=== PATIENT | female | born 1980 | race Caucasian/White ===

== ENCOUNTER → 2016-09-13 | Outpatient (CLI) | payer BC ==
--- NOTE | 2016-09-13 12:01 | CT ---
EXAMINATION TYPE: CT abdomen pelvis wo con DATE OF EXAM: 09/13/2016 COMPARISON: NONE INDICATION: Unspecified abdominal pain, diagnosed with renal stones previously DLP: 575.40 mGycm, Automated exposure control for dose reduction was used. CONTRAST: 0 mL of Omnipaque 300. Study performed without Oral Contrast TECHNIQUE: Axial images were obtained from above the diaphragm to the pubic rami in the axial plane a t 5 mm thick sections. Reconstructed images are reviewed on the computer in the coronal plane. FINDINGS: Limited CT sections are obtained the lung bases. The lung bases are clear. CT ABDOMEN: Liver: Normal Spleen: Normal Pancreas: Normal Adrenal glands: The adrenal glands are normal. Gallbladder: Normal Kidneys: No masses are evident. No hydronephrosis is present. No cysts are present. Multiple bilat eral renal cysts are present. This includes a 0.3 cm calcification at the inferior pole right kidney. 0.2 and 0.3 cm calcification is within the mid right kidney 0.4 cm calcification in the superior rig ht kidney 0.2 and 0.3 cm calcification in the superior pole of the right kidney. A 0.3 similar calcif ications in the upper pole left kidney. A 0.3 and 0.4 cm calcification is in the mid pole left kidney . There is a 0.2 cm calcification at the inferior pole left kidney. These calcifications are nonobstr ucting within the bilateral kidneys. No hydroureter is evident. Aorta: Normal Inferior vena cava: Normal. CT PELVIS: Loops of bowel within the abdomen and pelvis are normal. Studies without oral contrast limiting l oop of bowel evaluation. Appendix: Normal as visualized. Urinary bladder: Normal. Genitourinary structures: Uterus appears lobular and bulky. Fibroids are likely present. Additional e valuation with ultrasound is recommended. Adnexal regions otherwise appear unremarkable. Osseous structures: No suspicious lytic or sclerotic lesions. IMPRESSIONS: 1. Multiple nonobstructing bilateral renal stones. 2. Bulky uterus. Recommend ultrasound of the pelvis for additional evaluation.
== END | disposition home or self-care (01) ==
LOC: RADCTMAIN 07:29
PROVIDERS: ATTEND Family Medicine
DX: N20.0 Calculus of kidney (principal); N85.2 Hypertrophy of uterus
CPT/HCPCS: 74176

== ENCOUNTER → 2016-09-24 | Outpatient (CLI) | payer BC ==
--- NOTE | 2016-09-24 15:56 | US ---
EXAMINATION TYPE: US transvaginal DATE OF EXAM: 09/24/2016 COMPARISON: CT 09/13/2016 CLINICAL HISTORY: 36-year-old female D25.9 LEIOMYOMA OF UTERUS. Midline pelvic pain x couple months; uterus and right ovary were removed February 2015. Pelvic mass seen on recent CT TECHNIQUE: Transvaginal (TV) FINDINGS: Date of LMP: 2014 EXAM MEASUREMENTS: Uterus surgically absent. Right Ovary: surgically removed Left Ovary: 7.9 x 5.8 x 5.5 cm enlarged secondary to a complex mass containing multiple rounded comp onents. Areas of peripheral vascularity are demonstrated. Both arterial and venous flow is demonstrat ed. There may be a diverticulum from the bladder dome. Otherwise, no evident adnexal abnormality or cul-de-sac free fluid. IMPRESSION: 1. Status post hysterectomy and right-sided oophorectomy. 2. The left ovary is markedly enlarged measuring 7.9 cm with a large complex mass. Multiple hemorrhag ic cysts are possible. If no improvement in 6-8 weeks, further surgical management may be warranted to exclude neoplasm. 3. No sonographic evidence for ovarian torsion.
== END | disposition home or self-care (01) ==
LOC: RADUSWWP 14:52
PROVIDERS: ATTEND Family Medicine
DX: N83.8 Other noninflammatory disorders of ovary, fallopian tube and broad ligament (principal); Z90.710 Acquired absence of both cervix and uterus; Z90.721 Acquired absence of ovaries, unilateral
CPT/HCPCS: 76830

== ENCOUNTER 2017-02-07 06:36 | Day surgery (SDC) | payer BC ==
[2017-02-02 12:07] VITALS: BMI 27.2
[~2017-02-07 06:36] MED LIST: DEXAMETHASONE SOD PHOSPHATE 10 MG/ML 1 ML VIAL IV ONE; HYDROmorphone 0.5 MG/0.5 ML SYRINGE IVP PRN; LACTATED RINGERS 1,000 ML IV SCH; LIDOCAINE 1% 20 ML VIAL (10MG/ML) FOR IV START INTRADERMA PRN; ONDANSETRON 4 MG/2 ML VIAL IVP ONE; SCOPOLAMINE 1.5MG/72HR PATCH TRANSDERM ONE; ceFAZolin IN SWFI 2 GM/20 ML SYRINGE IVP ONE
[2017-02-07] MEDS ORDERED: LIDOCAINE 1% 20 ML VIAL (10MG/ML) FOR IV START INTRADERMA ONE (07:10)
--- NOTE | 2017-02-07 07:49 | P.HPOB ---
History of Present Illness H&P Date: 02/07/17 Chief Complaint: ovarian mass 36 year old G0 presents for laparoscopic removal of ovarian mass with possible oopherectomy using davinci. She has a variable size ovary, it has been up to 7.6cm and down to 6cm with a solid 3.8cm mass. She has history of endometriosis so I am suspecting endometrioma. Review of Systems All systems: negative Constitutional: Denies chills, Denies fever Eyes: denies blurred vision, denies pain Ears, nose, mouth and throat: Denies headache, Denies sore throat Cardiovascular: Denies chest pain, Denies shortness of breath Respiratory: Denies cough Gastrointestinal: Denies abdominal pain, Denies diarrhea, Denies nausea, Denies vomiting Genitourinary: Denies dysuria, Denies hematuria Musculoskeletal: Denies myalgias Integumentary: Denies pruritus, Denies rash Neurological: Denies numbness, Denies weakness Psychiatric: Denies anxiety, Denies depression Endocrine: Denies fatigue, Denies weight change Past Medical History Additional Past Medical History / Comment(s): PAST HX FIBROID UTERUS, RIGHT OVARIAN CYST & MENORRHAGIA (HYSTERECTOMY)., KIDNEY STONES., STATES OVARIAN MASS. History of Any Multi-Drug Resistant Organisms: None Reported Past Surgical History: Hysterectomy Additional Past Surgical History / Comment(s): HYSTERECTOMY WITH RIGHT SALPINGECTOMY & OOPHERECTOMY (02/2015). Past Anesthesia/Blood Transfusion Reactions: No Reported Reaction Additional Past Anesthesia/Blood Transfusion Reaction / Comment(s): . Past Psychological History: No Psychological Hx Reported Smoking Status: Never smoker Past Alcohol Use History: Occasional Additional Past Alcohol Use History / Comment(s): . Past Drug Use History: None Reported - Past Family History Mother Family Medical History: No Reported History Medications and Allergies Home Medications Medication Instructions Recorded Confirmed Type [id number] 391-635-24Gp 1 each PO Q6HR PRN 02/02/17 02/02/17 History [Excedrin] Ibuprofen [Motrin] 200 - 400 mg PO Q6HR PRN 02/02/17 02/02/17 History Naproxen [Naprosyn] 250 mg PO BID PRN 02/02/17 02/02/17 History traMADol HCL [Ultram] 50 mg PO Q4-6H PRN 02/02/17 02/07/17 History Allergies Allergy/AdvReac Type Severity Reaction Status Date / Time VAGINAL ULTRASOUND GEL AdvReac YEAST Uncoded 02/07/17 06:49 INFECTION AFTER 2 VAGINAL EXAMS Exam Osteopathic Statement: *. No significant issues noted on an osteopathic structural exam other than those noted in the History and Physical/Consult. - Vital Signs Vital signs: Vital Signs Temp Pulse Resp BP Pulse Ox 02/07/17 06:47 98.7 F 80 18 127/77 96 HEart: RRR Lungs: CTAB Abdomen: soft, nontender Extremeties: neg chari's Assessment and Plan (1) Ovarian mass, left Current Visit: Yes Status: Acute Code(s): N83.9 - NONINFLAMMATORY DISORD OF OVARY, FALLOP & BROAD LIGMT, UNSP SNOMED Code(s): 671285616 Plan: laparoscopic removal of ovarian mass using da carl, possible oopherectomy.
[2017-02-07] MEDS ORDERED: fentaNYL (PF) 50 MCG/ML 2 ML AMP ONE (07:55)
[2017-02-07] MEDS ORDERED: KETOROLAC 30 MG/ML 1 ML VIAL ONE (07:55)
[2017-02-07] MEDS ORDERED: ROCURONIUM BROMIDE 10 MG/ML 10 ML VIAL IV ONE (07:55)
[2017-02-07] MEDS ORDERED: NEOSTIGMINE 1 MG/ML 10 ML VIAL ONE (07:55)
[2017-02-07] MEDS ORDERED: MIDAZOLAM 2 MG/2 ML VIAL ONE (07:55)
[2017-02-07] MEDS ORDERED: PROPOFOL 10 MG/ML 20 ML VIAL IV ONE (07:55)
[2017-02-07] MEDS ORDERED: GLYCOPYRROLATE 0.2 MG/ML 2 ML VIAL ONE (07:55)
[2017-02-07] MEDS ORDERED: SUCCINYLCHOLINE CHLORIDE 100 MG/5 ML SYR IV ONE (07:55)
[2017-02-07] MEDS ORDERED: HYDROmorphone (PF) 1 MG/ML ONE (07:55)
[2017-02-07] MEDS ORDERED: LIDOCAINE 1% INJ 10MG/ML (20 ML MDV) ONE (07:55)
[2017-02-07] MEDS ORDERED: BUPIVACAINE (PF) 0.25% 30 ML VIAL SQ ONE (08:25)
[2017-02-07 10:04] VITALS: RESP 16; TEMP 97
--- NOTE | 2017-02-07 10:05 | P.OP ---
Date of Procedure: 02/07/17 Preoperative Diagnosis: 1. Ovarian mass Postoperative Diagnosis: 1. endometrioma 2. ovarian cyst 3. ovarian and bowel adhesions Procedure(s) Performed: laparoscopic removal of left ovary and tube, lysis of adhesions Anesthesia: TOMASZ Surgeon: Yael Tee Estimated Blood Loss (ml): 50 IV fluids (ml): 1,000 Urine output (ml): 200 Pathology: other (left ovary and tube) Condition: stable Disposition: PACU Operative Findings: multiple small cysts filled with endometriosis and other cysts filled with serous fluid, filmy bowel adhesions, bowel attached to left ovary. Description of Procedure: Patient taken the operating room where general anesthesia was obtained without difficulty. She is prepped and draped in normal sterile fashion dorsal lithotomy position, legs placed in the Reinaldo stirrups. Day catheter was placed. A 5 mm supraumbilical incision was made the scalpel and a 5 mm optical trocar was placed under direct visualization. 10 cm to the right of this and 2 cm down a 5 mm incision was made and 8 mm da Aj port was placed under direct visualization. Same measurements on the opposite side of the patient's abdomen , the 5 mm incision was made and 8 mm da Aj port was placed under direct visualization. In the left upper quadrant a 10 mm incision was made and a 10 mm optical trocar was placed under direct visualization. The 5 mm optical trocar was then replaced with the 8 mm da Aj camera port. The robot was docked on patient's right side. The camera was introduced and then the monopolar curved scissor and [place] bipolar placed under direct visualization. I broke scrub and went to the physician console. survey of the pelvis revealed bowel adhesions to the left ovary. There is also bowel adhesions to the vagina and inferior aspect of the abdominal wall. The ovary was grasped and immediately started bleeding.some of the bowel adhesions were able to be bluntly dissected, and the bowel was able to be pushed away. The posterior aspect of the ovary was firmly attached and the right side the ovary was firmly attached to the bowel. Opening up of the ovary and did not see any solid masses. There were however several small cysts that when opened endometriosis was observed and serous fluid was also observed. The decision at this time was made to remove as much ovary as possible because if the ovary is left the endometriosis is just going to come back in 4 more adhesions to the bowel and her problems are going to continue. The ovary was grasped and lifted. The mesosalpinx was cauterized with the bipolar and cut with the monopolar curved scissors. An area of the ovary was cauterized with the bipolar and cut with monopolar curved scissors. As much of the bowel as possible was bluntly dissected off the right part of the ovary, and rest of the ovary was removed. The ovary was placed into an Endo Catch bag and removed through the 10 port. There was still some oozing from the crater left. There was no active bleeding seen and though. The pelvis copiously irrigated. Rectal exam was performed. There was no blood on my glove and no defects visualized. Gelfoam was placed in the area of the crater that had some oozing. All instruments removed from the abdomen and the trochars were also removed. The incisions were closed with 4-0 Vicryl in a subcuticular fashion. Patient tolerated procedure well. Sponge and instrument counts correct 2. She was taken to recovery in stable condition.
[2017-02-07] MEDS ORDERED: HYDROcodone/APAP 7.5-325MG 1 EACH TAB PO ONE (11:24)
[2017-02-07 12:15] VITALS: BP 118/59; PULSE 72
== END 2017-02-07 12:30 | disposition home or self-care (01) ==
LOC: OR 06:36
PROVIDERS: ATTEND Obstetrics & Gynecology
DX: N80.1 Endometriosis of ovary (principal); N80.2 Endometriosis of fallopian tube; N83.02 Follicular cyst of left ovary; N73.6 Female pelvic peritoneal adhesions (postinfective); K66.0 Peritoneal adhesions (postprocedural) (postinfection)
CPT/HCPCS: 86900; 86901; 86850; 88307; 58661; J2250; J1100; J2710; J2405; J2001; J3010; J1885; J1170; J0330; J2704

== ENCOUNTER → 2020-12-29 | Outpatient (CLI) | payer BC ==
--- NOTE | 2020-12-31 08:02 | MM ---
Reason for exam: screening (asymptomatic). Baseline mammogram. Physical Findings: Nurse did not find any significant physical abnormalities on exam. MG Screening Mammo w CAD Bilateral CC and MLO view(s) were taken. The breast tissue is heterogeneously dense. This may lower the sensitivity of mammography. There is no discrete abnormality. ASSESSMENT: Negative, BI-RAD 1 RECOMMENDATION: Routine screening mammogram of both breasts in 1 year. Patient should continue monthly self breast exams. A negative report should not preclude additional follow up of suspicious palpable abnormalities.
== END | disposition home or self-care (01) ==
LOC: RADMAMWWP 14:32
PROVIDERS: ATTEND Family Medicine
DX: Z12.31 Encounter for screening mammogram for malignant neoplasm of breast (principal)
CPT/HCPCS: 77067

== ENCOUNTER → 2023-11-29 | Outpatient (CLI) | payer BC ==
--- NOTE | 2023-11-30 12:23 | MM ---
Reason for Exam: Screening (asymptomatic). Last mammogram was performed 2 year(s) and 11 month(s) ago. Patient History: Menarche at age 12. Hysterectomy at age 34. Risk Values: Stephanie 5 year model risk: 0.6%. NCI Lifetime model risk: 7.1%. Prior Study Comparison: 12/29/2020 Bilateral Screening Mammogram, [facility]. Tissue Density: The breasts are heterogeneously dense, which may obscure small masses. Findings: Analyzed By CAD. Right breast: There is no suspicious group of microcalcifications or new suspicious mass. Left breast: There is no suspicious group of microcalcifications or new suspicious mass. Overall Assessment: Negative, BI-RAD 1 Management: Screening Mammogram of both breasts in [address] [facility] will attempt to contact patient to return for supplemental views and ultrasound if indicated. Patient should continue monthly self-breast exams. A clinical breast exam by your physician is recommended on an annual basis. This exam should not preclude additional follow-up of suspicious palpable abnormalities. Note on Stephanie scores and lifetime risk: 1. A Stephanie score greater than 3% is considered moderate risk. If this is the case, consider specialist referral to assess eligibility for a risk reducing agent. 2. If overall lifetime risk for the development of breast cancer is 20% or higher, the patient may qualify for future screening with alternating mammogram and breast MRI. [facility], , 11/30/2023 12:20 PM. Electronically signed and approved by: Truman Peters DO
== END | disposition home or self-care (01) ==
LOC: RADMAMWWP 12:52
PROVIDERS: ATTEND Family Medicine
CPT/HCPCS: 77067